=== PATIENT | female | born 1975 | race Caucasian/White ===

== ENCOUNTER → 2017-07-09 | Outpatient (CLI) | payer BC, OTHER | END | disposition home or self-care (01) | LOC: C.PAPS 08:28 | PROVIDERS: ATTEND Physician Assistant Medical | DX: Z01.419 Encounter for gynecological examination (general) (routine) without abnormal findings (principal) ==

== ENCOUNTER → 2018-02-08 | Outpatient (CLI) | payer OTHER ==
[2018-02-08 17:33] LABS: BASO % 0.2 %; BASO ABS # 0.03 K/uL (0-0.2); EOS % 1.2 %; EOS ABS # 0.15 K/uL (0-0.5); HEMATOCRIT 42.2 % (37-47); HEMOGLOBIN 14.2 g/dL (12.0-16.0); IG# 0.05 K/uL (0.00-0.02); LYMPH % 32.7 %; LYMPH ABS # 4.11 K/uL (1.2-3.4); MEAN CELL VOLUME 94.6 fL (80-100); MEAN CORPUSCULAR HEMOGLOBIN 31.8 pg (25-34); MEAN CORPUSCULAR HGB CONC 33.6 g/dl (32-36); MEAN PLATELET VOLUME 9.1 fL (7.4-10.4); MONO % 6.7 %; MONO ABS # 0.84 K/uL (0.11-0.59); NEUT % 58.8 %; NEUT ABS # 7.38 K/uL (1.4-6.5); PLATELET COUNT 344 K/uL (130-400); RED CELL DISTRIBUTION WIDTH CV 12.7 % (11.5-14.5); RED CELL DISTRIBUTION WIDTH SD 43.4 fL (36.4-46.3); WHITE BLOOD COUNT 12.56 K/uL (4.8-10.8)
== END | disposition home or self-care (01) ==
LOC: C.LAB1850 16:33
PROVIDERS: ATTEND Obstetrics & Gynecology
DX: N89.8 Other specified noninflammatory disorders of vagina (principal); N94.6 Dysmenorrhea, unspecified

== ENCOUNTER → 2018-02-11 | Outpatient (CLI) | payer OTHER ==
--- NOTE | 2018-02-11 13:05 | DIAGNOSTIC IMAGING REPORT ---
ULTRASOUND OF THE THYROID GLAND CLINICAL HISTORY: Sulaiman's thyroiditis. COMPARISON STUDY: No priors. TECHNIQUE: Real-time, grayscale, and color flow sonography of the thyroid gland is performed utilizing a high-frequency linear transducer. Images are reviewed in the transverse and longitudinal planes. FINDINGS: Right lobe: The right lobe of the thyroid gland is normal in size and heterogeneous in echotexture, measuring 4.6 x 1.9 x 1.6 cm. There is mild hyperemia of the right lobe on color imaging. A hypoechoic solid nodule in the lower pole measures 1.0 x 0.8 x 1.0 cm. Left lobe: The left lobe of the thyroid gland is normal in size and heterogeneous in echotexture, measuring 3.6 x 1.6 x 1.6 cm. Mild hyperemia is seen on color imaging. Isthmus: The thyroid isthmus appears mildly thickened and heterogeneous, measuring 0.5 cm in AP diameter. IMPRESSION: 1. The thyroid gland is normal in size and heterogeneous in echotexture. The gland appears mildly hyperemic on color imaging. 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 2. A 1.0 cm low suspicion nodule is seen in the right lower pole. This does not meet sonographic criteria for fine needle aspiration. Precautionary 1 year follow-up is recommended for reassessment. Electronically signed by: Jelani Loera M.D. 02/11/2018 1:04 PM Dictated Date/Time: 02/11/2018 1:02 PM
== END | disposition home or self-care (01) ==
LOC: C.ULTRBC 11:52
PROVIDERS: ATTEND Physician Assistant Medical
DX: E03.9 Hypothyroidism, unspecified (principal); E06.3 Autoimmune thyroiditis

== ENCOUNTER → 2018-06-24 | Day surgery (SDC) | payer OTHER ==
[2018-06-16 13:26] VITALS: Ht 165.1 cm; Wt 110.0 kg
--- NOTE | 2018-06-23 15:16 | History and Physical: Surg Cnt ---
History & Physical Date Jun 23, 2018. Chief Complaint sinus infections History of Present Illness The patient is a 42 year old female with complaints of chronic sinusitis Additional History Hepatic Disease: No Endocrine Disorder: Yes Kidney Disease: No Hypertension: No Heart Disease: No Bleeding Tendencies: No Infectious Diseases: No Allergies Coded Allergies: No Known Allergies (Unverified , 06/16/18) Home Medications Scheduled Multivitamin (Multivitamin), 1 TAB PO DAILY Physical Examination Skin: warm/dry, no rash Eyes: normal inspection, EOMI, sclerae normal ENT: normal ENT inspection, pharynx normal Head: normocephalic, atraumatic Neck: supple, no adenopathy, trachea midline Respiratory/Chest: lungs clear, normal breath sounds, no respiratory distress Cardiovascular: regular rate, rhythm, no edema, no murmur Abdomen / GI: normal bowel sounds, non tender Back: normal inspection Extremities: normal inspection, normal range of motion Neurologic/Psych: no motor/sensory deficits, alert, normal reflexes, oriented x 3 Diagnosis chronic sinusitis Plan of Treatment endoscopic sinus surgery
[~2018-06-24] VITALS: Ht 165.1 cm; Wt 110.0 kg
[~2018-06-24] MED LIST: ATROPINE SULFATE 0.1 MG/ML 5ML SYR IV PRN; CEFAZOLIN 2000MG IV PUSH 15 ML IV SCH; DEXAMETHASONE SOD INJ 4 MG/ML VIAL ONE; EpHEDrine SULFATE INJ 50 MG/ML AMP IV PRN; EpINEphrine INJ 1MG/ML AMP 1 MG/ML AMP ONE; FENTANYL CITRATE INJ 50 MCG/1 ML 2 ML VIAL IV PRN; FENTANYL CITRATE INJ 50 MCG/1 ML 2 ML VIAL ONE; LACTATED RINGER'S 1000ML 1,000 ML IV SCH; LIDO 2%/EPINEPHRINE 1:100000 20 ML VIAL ONE; LIDOCAINE 4% MPF SOAK 5 ML = 1 DOSE ONE; LIDOCAINE HCL 2% 2 ML VIAL (20MG/ML) ONE; MIDAZOLAM HCL 1 MG/ML 2ML VIAL ONE; MULT-506 PO; ONDANSETRON INJ 2 MG/ML 2 ML VIAL IV PRN; ONDANSETRON INJ 2 MG/ML 2 ML VIAL ONE; OXYC-57 PO; OXYCODONE/ACETAMINOPHEN 5-325 TAB PO PRN; PHENYLEPHRINE HCL INJ 10 MG/ML VIAL ONE; PROPOFOL IV EMULSION 10 MG/ML 20 ML VIAL ONE; SODIUM CHLORIDE 0.9% 1000ML 1,000 ML IV SCH
--- NOTE | 2018-06-24 09:01 | History & Physical Bridge Note ---
H&P Re-Evaluation Bridge Note: I have examined the patient, reviewed the History & Physical and in the interval since the performance of the History & Physical I have noted the following changes of clinical significance: No changes noted
--- NOTE | 2018-06-24 13:58 | [facility] Post Operative Brief Note ---
Immediate Operative Summary Operative Date Jun 24, 2018. Pre-Operative Diagnosis Chronic sinusitis Post-Operative Diagnosis Same as preop Procedure(s) Performed Endoscopic Sinus Surgery to include left and right frontal, left and right maxillary, left and right sphenoid, and left and right total ethmoidectomies Surgeon Dr. Oh Drill Bit Sharpener Surgeon(s) None Estimated Blood Loss 100 mL Findings Consistent with Post-Op Diagnosis Specimens None Drains None Anesthesia Type General Complication(s) none Disposition Accompanied Pt To Recover: yes Disposition: Recovery Room / PACU Overlapping Procedure I was present for: the critical portions of procedure. I was immediately available: during the entire case
--- NOTE | 2018-06-24 14:00 | Discharge Instructions-SurgCtr ---
Discharge Instructions Date of Service Jun 24, 2018. Visit Reason for Visit: Chronic Sinusitis Discharge Discharge Diagnosis / Problem: same Discharge Goals Goal(s): Improve function, Improve disease control, Therapeutic intervention Activity Recommendations Activity Limitations: per Instructions/Follow-up section Anesthesia . Post Anesthesia Instructions: If you have had General Anesthesia or IV Sedation: * Do not drive today. * Resume driving when surgeon permits. * Do not make important decisions or sign legal documents today. * Call surgeon for: 1. Temperature elevations greater than 101 degrees F. 2. Uncontrollable pain. 3. Excessive bleeding. 4. Persistent nausea and vomiting. 5. Medication intolerance (nausea, vomiting or rash). * For nausea and vomiting use only clear liquids such as: tea, soda, bouillon until nausea subsides, then gradually increase diet as tolerated. * If you have any concerns or questions, call your surgeon's office. If physician is unavailable and it is an emergency, call 911 or go to the nearest emergency room. . Instructions / Follow-Up Instructions / Follow-Up ACTIVITY RECOMMENDATIONS: * Being up and around is good, but no strenuous activity, heavy lifting or physical exertion for one week. * Keep your head elevated 30 degrees when lying down or sleeping. * Do not blow your nose for 48 hours, sniff back instead. * Avoid hot showers. OVER THE COUNTER MEDICATIONS: * You may use Tylenol * Avoid aspirin or aspirin containing products, e.g. as they may increase bleeding. SPECIAL CARE INSTRUCTIONS: * Expect to have bloody drainage from your nose and/or down your throat for one to three days. Change drip pad as needed. * Begin irrigating your nose with saline solution today, at least six to ten times per day and sniff back to help remove old clots or crust. * You may experience nasal and facial congestion, pain and pressure, this is normal. * Please call with any significant and/or progressive pain, redness, swelling around the eyes, visual changes, fever of 101.5 degrees F, active bleeding or any problems or concerns. * If active bleeding occurs, spray the nose three times at one minute intervals with Afrin spray and call or cell phone: . If unable to reach the doctor, go to the nearest Emergency Department. Special Diet: * Avoid extremely hot fluids. FOLLOW UP VISIT: Follow-up Visit with Dr. Oh If not already scheduled, please call to schedule. Diet Recommendations Home Diet: no limitations Procedures Procedures Performed: Endoscopic Sinus Surgery to include left and right frontal, left and right maxillary, left and right sphenoid, and left and right total ethmoidectomies Pending Studies Studies pending at discharge: no Medical Emergencies . Who to Call and When: Medical Emergencies: If at any time you feel your situation is an emergency, please call 911 immediately. . Non-Emergent Contact Non-Emergency issues call your: Primary Care Provider . . "Provider Documentation" section prepared by Racheal Oh. . [place] Drug Monitoring Program Search Results: no issues identified
--- NOTE | 2018-06-24 14:28 | Anesthesia Progress Nt - [facility] ---
Anesthesia Post Op Note Date & Time Jun 24, 2018 at 14:28 Vital Signs Pain Intensity: 2 Vital Signs Past 12 Hours Date Time Temp Pulse Resp B/P (MAP) Pulse Ox O2 Delivery O2 Flow Rate FiO2 06/24/18 14:23 36.4 70 16 124/80 98 Room Air 06/24/18 14:16 79 19 06/24/18 14:16 77 19 117/72 97 06/24/18 14:11 69 13 06/24/18 14:11 70 13 131/81 96 06/24/18 14:06 71 12 06/24/18 14:06 71 12 94 06/24/18 14:05 132/89 06/24/18 14:01 76 18 06/24/18 14:01 75 18 122/83 93 06/24/18 13:56 75 14 06/24/18 13:56 75 14 97 06/24/18 13:55 124/97 06/24/18 13:51 77 34 97 06/24/18 13:51 77 34 06/24/18 13:50 79 20 122/73 98 06/24/18 13:50 78 20 06/24/18 13:47 109/84 06/24/18 13:45 36.4 81 16 109/84 96 Humidified Oxygen 5 Mask 06/24/18 13:45 81 93 06/24/18 13:45 81 06/24/18 11:12 37.4 79 18 120/83 (95) 96 Room Air Notes Mental Status: alert / awake / arousable, participated in evaluation Pt Amnestic to Procedure: Yes Nausea / Vomiting: adequately controlled Pain: adequately controlled Airway Patency, RR, SpO2: stable & adequate BP & HR: stable & adequate Hydration State: stable & adequate Anesthetic Complications: no major complications apparent
[2018-06-24 14:29] VITALS: TEMP 36.5
[2018-06-24 15:00] VITALS: BP 135/86; PULSE 74; O2SAT 98
--- NOTE | 2018-06-24 18:32 | OPERATIVE REPORT ---
DATE OF OPERATION: 06/24/2018 PREOPERATIVE DIAGNOSES: Chronic sinusitis and polyps. POSTOPERATIVE DIAGNOSES: Chronic sinusitis and polyps. PROCEDURES: Right and left frontal, right and left sphenoid, right and left total ethmoid, and right and left maxillary sinus antrostomies. SURGEON: Racheal Oh MD ANESTHESIA: General LMA. COMPLICATIONS: None. BLOOD LOSS: 100 mL. HISTORY: This is a 42-year-old lady presented with recurrent chronic sinusitis, significant headaches, CT documented pansinusitis. DESCRIPTION OF PROCEDURE: The patient brought to the operating room and placed in supine position. General anesthesia was induced using LMA. She was prepped and draped in the usual sterile manner. The ALOHA device was calibrated and used for the entire procedure. The right sphenoid was cannulated with a guidewire and dilated using the 6 mm balloon as was the left sphenoid. The right maxillary sinus was cannulated with guidewire and dilated using the 6 mm balloon as was the left maxillary sinus. At this point, the right frontal sinus was cannulated with the guidewire and dilated using the 6 mm balloon with [employer] computer guidance. The guidewire was left in place as a marker as the catheter was withdrawn and the frontal sinusotomy was performed by removing the anterior wall and the posterior wall of the agger nasi cell using the shaver coupled with the [employer] device. At this point, total ethmoidectomy was performed opening up the bullae ethmoidalis going through the ground lamella finding the ethmoids to be totally filled with polyps, opening up the posterior most ethmoid air cell, delineating the skull base superiorly and lamina papyracea laterally, and following these structures anteriorly to exonerate all the posterior and all the anterior ethmoid air cells up to the previously dilated nasal frontal duct. The maxillary sinus was opened by removing the polypoid mucosa at the posterior border which is the anterior wall of the bullae ethmoidalis. Polypoid tissue was removed to open up the maxillary sinus. Sphenoid was opened by removing polypoid tissue at the inferior border of the superior turbinate at the anterior face of the sphenoid. Attention was turned to the left side where a frontal sinusotomy, sphenoidotomy, total ethmoidectomy, and maxillary sinus antrostomy was performed in a similar manner. Contour stents were placed in the nasal frontal duct and Propel stents placed in the middle meatus area. The patient tolerated the procedure well and was taken to recovery area in satisfactory condition. I attest to the content of the Intraoperative Record and any orders documented therein. Any exception s are noted below.
== END | disposition home or self-care (01) ==
LOC: X.SURG 10:55
PROVIDERS: ATTEND Otolaryngology
DX: J32.9 Chronic sinusitis, unspecified (principal); J33.8 Other polyp of sinus